=== PATIENT | male | born 1980 | race Two or more races ===

== ENCOUNTER 2023-12-01 15:42 | Emergency (ER) | payer BC ==
[~2023-12-01] VITALS: Ht 182.9 cm; Wt 106.6 kg
[2023-12-01 16:14] LABS: BASOPHILS # (AUTO) 0.1 K/uL (0.0-0.2); BASOPHILS % (AUTO) 0.6 % (0.0-2.0); EOSINOPHILS # (AUTO) 0.2 K/uL (0.0-0.7); EOSINOPHILS % (AUTO) 2.3 % (0.0-6.0); HEMATOCRIT 51 % (39-51); HEMOGLOBIN 16.7 g/dL (13.5-17.5); LYMPHOCYTES # (AUTO) 1.8 K/uL (0.8-4.8); LYMPHOCYTES % (AUTO) 17.7 % (20.0-44.0); MEAN CORPUSCULAR HEMOGLOBIN 29 PG (26.0-33.0); MEAN CORPUSCULAR HGB CONC 33 g/dl (31.0-36.0); MEAN CORPUSCULAR VOLUME 88 fL (80-96); MONOCYTES # (AUTO) 1.2 K/uL (0.1-1.30); NEUTROPHILS % (AUTO) 67.4 % (43.0-81.0); PLATELET COUNT (AUTO) 337 K/uL (150-450); RED CELL DISTRIBUTION WIDTH 15.2 % (11.5-15.0); WHITE BLOOD COUNT (AUTO) 10.3 K/uL (4.3-11.0)
[2023-12-01 16:15] LABS: SITE, VBG VBG - N/A; VBG BASE EXCESS 3.6 mmol/L (-2.0-3.0); VBG COHb 2.5 % (0.5-1.5); VBG HCO3 28.6 mmol/L (22.0-29.0); VBG MetHb 0.3 % (0.5-1.5); VBG O2Hb 75.5 % (0-79); VBG OXYGEN SATURATION 77.7 % (60.0-85.0); VBG PCO2 44.1 mmHg (38.0-54.0); VBG PO2 39.3 mmHg (23.0-48.0); VBG TOTAL HEMOGLOBIN 17.5 G/dL (13.5-17.5)
[2023-12-01 16:28] LABS: ALBUMIN 3.2 g/dL (3.4-5.0); BILIRUBIN,TOTAL 0.2 mg/dL (0.2-1.0); CALCIUM, SERUM 9.1 mg/dL (8.5-10.1); CREATININE 1.1 mg/dL (0.6-1.3); POTASSIUM 5.2 mmol/L (3.5-5.1); TOTAL PROTEIN, SERUM 7.4 g/dL (6.4-8.2)
[2023-12-01] MEDS: IV NS 0.9% 1,000 ML BAG IV ONE (16:30)
[2023-12-01] MEDS: IV LR 1000 ML 1,000 ML IV ONE (16:30)
[2023-12-01] MEDS: INSULIN REGULAR, HUMAN 100 UNIT/ML 10 ML VIAL SQ STA (16:56)
[2023-12-01 18:43] VITALS: BP 136/71; TEMP 98.1; O2SAT 96
== END 2023-12-01 18:43 | disposition home or self-care (01) ==
LOC: ER 16:08
DX: E11.65 Type 2 diabetes mellitus with hyperglycemia (principal); E11.9 Type 2 diabetes mellitus without complications; Z86.79 Personal history of other diseases of the circulatory system; Z91.148 Patient's other noncompliance with medication regimen for other reason
CPT/HCPCS: 99283; 96360; 82803 ×2; 85025; 80048; 82010; 83690; 80076; 36415; 82962 ×2; 96372; J1815; J7120 ×2; J7030